=== PATIENT | female | born 1945 | race Caucasian/White ===

== ENCOUNTER 2025-06-24 11:53 | Outpatient (CLI) | payer MEDICARE, BC, SELFPAY ==
--- NOTE | 2025-06-24 13:30 | P.ANES_ITS ---
Anesthesia Charges Start Date/Time Anesthesia Start Date: 06/24/25 Anesthesia Start Time: 13:01 Stop Date/Time Anesthesia Stop Date: 06/24/25 Anesthesia Stop Time: 13:27 Summary Extremes of Age - Over 70 or under 1: OUTSIDE PLANT TECHNICIAN Coding CPT Codes CPT Codes: PHILIP LWR INTST NDSC NOS - [id number] ([id number]) P2 - PATIENT W/MILD SYST DISEASE, QK - TALENT ACQUISITION COORDINATOR 2-4 CNCRNT ANEKannan PROC, QX - OUTSIDE PLANT TECHNICIAN SVC W/ MD MED DIRECTION Additional Codes: Summary - Extremes of Age - Over 70 or under 1: OUTSIDE PLANT TECHNICIAN ([id number])
--- NOTE | 2025-06-24 13:30 | W.ANESCHARGE ---
Anesthesia Charges Start Date/Time Anesthesia Start Date: 06/24/25 Anesthesia Start Time: 13:01 Stop Date/Time Anesthesia Stop Date: 06/24/25 Anesthesia Stop Time: 13:27 Summary Extremes of Age - Over 70 or under 1: SPECIALTY FINISHING UTILITY PERSON Coding CPT Codes CPT Codes: PHILIP LWR INTST NDSC NOS - [id number] ([id number]) P2 - PATIENT W/MILD SYST DISEASE, QK - NONFARM ANIMAL CARETAKER 2-4 CNCRNT ANEKannan PROC, QX - SPECIALTY FINISHING UTILITY PERSON SVC W/ MD MED DIRECTION Additional Codes: Summary - Extremes of Age - Over 70 or under 1: SPECIALTY FINISHING UTILITY PERSON ([id number])
--- NOTE | 2025-06-24 13:50 | P.ANES_ITS ---
Anesthesia Charges Start Date/Time Anesthesia Start Date: 06/24/25 Anesthesia Start Time: 13:01 Stop Date/Time Anesthesia Stop Date: 06/24/25 Anesthesia Stop Time: 13:27 Summary Extremes of Age - Over 70 or under 1: MDA Coding CPT Codes CPT Codes: ANES LWR INTST NDSC NOS - [id number] ([id number]) P2 - PATIENT W/MILD SYST DISEASE, QK - COMPUTER RECYCLING WORKER 2-4 CNCRNT ANES PROC, QX - COIN PURSE FRAMER SVC W/ MD MED DIRECTION Additional Codes: Summary - Extremes of Age - Over 70 or under 1: MDA ([id number])
--- NOTE | 2025-06-24 13:50 | W.ANESCHARGE ---
Anesthesia Charges Start Date/Time Anesthesia Start Date: 06/24/25 Anesthesia Start Time: 13:01 Stop Date/Time Anesthesia Stop Date: 06/24/25 Anesthesia Stop Time: 13:27 Summary Extremes of Age - Over 70 or under 1: MDA Coding CPT Codes CPT Codes: ANES LWR INTST NDSC NOS - [id number] ([id number]) P2 - PATIENT W/MILD SYST DISEASE, QK - QUILL LAYER 2-4 CNCRNT ANES PROC, QX - ELECTROGALVANIZING MACHINE OPERATOR SVC W/ MD MED DIRECTION Additional Codes: Summary - Extremes of Age - Over 70 or under 1: MDA ([id number])
== END 2025-06-24 11:54 | disposition home or self-care (01) ==
PROVIDERS: Visit Provider Internal Medicine Gastroenterology
DX: D12.3 Benign neoplasm of transverse colon (principal); Z86.0101 Personal history of adenomatous and serrated colon polyps
CPT/HCPCS: 00811; 45385; 99100; J2704